=== PATIENT | male | born 1970 | race Caucasian/White ===

== ENCOUNTER 2019-05-17 09:48 | Emergency (ER) | payer MEDICAID, SELFPAY ==
[2019-05-17 09:50] VITALS: BP 120/68; PULSE 104; RESP 16; TEMP 36.6; O2SAT 100; BMI 30.2
[2019-05-17 10:49] VITALS: O2SAT 97
[2019-05-17 10:50] VITALS: BP 134/78; PULSE 93; RESP 18; TEMP 37.3; O2SAT 97
--- NOTE | 2019-05-17 10:55 | RAD_ITS ---
STUDY: X-RAY CHEST REASON FOR EXAM: Male, 48 years old. COUGH WITH BACK PAIN TECHNIQUE: PA and lateral views of the chest. COMPARISON: Comparison is made with prior examination dated September 07, 2009. FINDINGS: The lungs are clear and expanded. There is no demonstrated pleural abnormality. Normal size heart. Normal mediastinum and gus. Normal visualized pulmonary arteries. Normal visualized aortic arch and descending thoracic aorta. Normal visualized thoracic spine. Normal visualized ribs, clavicles, and shoulders. There is no demonstrated abnormality of the visualized soft tissue structures of the upper abdomen. RAD/Chest PA and Lateral IMPRESSION: Normal x-ray examination of the chest. Electronically Signed: Arpit Contreras, at 12:03 EST , Service support ,
[2019-05-17 11:27] VITALS: BP 142/76; PULSE 92; RESP 21; TEMP 37.3; O2SAT 98
[2019-05-17 12:00] VITALS: BP 126/78; PULSE 87; RESP 19; TEMP 37.2; O2SAT 99
--- NOTE | 2019-05-17 13:26 | ED.DCSUM_ITS ---
- ER Visit Summary Date of Service: 05/17/19 Chief Complaint: Cough History of Present Illness: The patient is a 48 M who presents with cough that is been constant for the past 4 days. Patient states he is coughing up some white and yellow sputum. Patient states nothing makes it better or worse. Patient states that his parents have been diagnosed with influenza recently. Patient denies any fevers or chills. Patient does admit to some pain in his right ear. Patient also admits to some pain in his low back. Physical Examination: Vital signs are stable. Patient is afebrile. Patient is in no acute distress. Oral mucosa is pink and moist. Neck is supple. Trachea is midline. There is no JVD noted. Heart was regular rate and rhythm. Lungs are clear and equal bilaterally. Abdomen is soft. Bowel sounds are normal. There is no tenderness. There is no rebound or guarding noted. Skin is warm dry. Cranial nerves II through XII are intact. There are no focal motor or sensory deficits noted. Extremities are intact. There is no calf tenderness or edema. Test Results: PA and lateral chest x-ray was obtained. There is no acute cardiopulmonary process. Influenza swabs were obtained were negative. Emergency Department Course and Treatment: Patient was advised that this is most likely a viral upper respiratory infection. Patient was instructed to drink plenty of fluids. Patient was instructed to follow-up with his primary care physician in 5 to 7 days. Patient understood and was agreeable with the plan. All questions were answered. Disposition: Discharge home Impression: Viral upper respiratory infection This note was generated with [employer] dictation software. It may contain incorrect words, spelling, and punctuation that were not noted in review of the chart prior to signing ED Disposition - Plan for ED Patient: Disposition: Home or Assisted Living Diagnosis: Viral upper respiratory infection Instructions: URI, Viral, No Abx (Adult) Referrals: Syed Wilde [Primary Care Provider] - 5-7 Days
[2019-05-17 13:44] VITALS: BP 124/63; PULSE 71; RESP 15; O2SAT 99
== END 2019-05-17 13:45 | disposition home or self-care (01) ==
PROVIDERS: Emergency Provider Emergency Medicine; PCP Family Medicine
DX: J06.9 Acute upper respiratory infection, unspecified (principal); Z72.0 Tobacco use
CPT/HCPCS: 71046; 87804; 99282

== ENCOUNTER 2020-04-12 22:53 | Emergency (ER) | payer OTHER, MEDICAID, SELFPAY ==
[2020-04-12 22:53] VITALS: BP 128/84; PULSE 69; RESP 12; TEMP 37.1; O2SAT 98; BMI 30.2
--- NOTE | 2020-04-12 23:30 | RAD_ITS ---
STUDY: X-RAY CHEST REASON FOR EXAM: Male, 49 years old. PT ARRIVES TO ED WITH COUGH, FEVER, AND MUSCLE ACHES FOR A COUPLE DAYS TECHNIQUE: Single AP portable view of the chest. COMPARISON: None. FINDINGS: There is no focal parenchymal abnormality. There is no demonstrated pleural abnormality. Normal size heart. Normal mediastinum and gus. Normal visualized pulmonary arteries. Normal visualized aortic arch and descending thoracic aorta. Normal visualized thoracic spine. Normal visualized ribs, clavicles, and shoulders. There is no demonstrated abnormality of the visualized soft tissue structures of the upper abdomen. RAD/Chest 1 View (Portable) IMPRESSION: No pulmonary edema, congestive heart failure or confluent pneumonia. Electronically Signed: Amanda Castro MD at 0:12 EST , Service support ,
[2020-04-12] MEDS: Acetaminophen 500 MG Tablet 1000 MG PO (23:38)
--- NOTE | 2020-04-12 23:39 | ED.VIS.GEN ---
History of Present Illness Chief Complaint: Cough Informant: Patient Onset: Days Context: Gradual Onset Timing: Continuous Current Severity: Moderate Maximum Severity: Moderate Narrative: Patient is a 49-year-old male with history of HIV, smoking, who presents to the emergency department with cough and myalgias. The patient states he has been sick for about 3 days. He has had 2 nieces that had similar symptoms. He is unsure if they test positive for Covid. He states that he is had some muscle aches and a mild cough. He is unsure if he had fever. He has been compliant with all of his antiretroviral therapy. He states that because of his symptoms, work made him come be evaluated for Covid. Prior similar symptoms: No Recent Illness/Hospitalization: No Past Medical History - Allergies and Home Meds Allergies/Adverse Reactions: Allergies No Known Allergies Allergy (Verified 04/12/20 22:54) Primary Care Physician: Syed Wilde DO [Primary Care Provider] - Prior records reviewed: Yes Past Medical History: - - HIV Surgical History: noncontributory Smoking Status: Current every day smoker Review of Systems General: Reports: Chills. Denies: Fever, Sweats Eyes: Denies: Visual changes - bilaterally, Diplopia ENT: Denies: Rhinorrhea, Sore throat Cardiovascular: Denies: Chest pain, Palpitations Respiratory: Reports: Cough. Denies: Dyspnea, Dyspnea on exertion Gastrointestinal: Denies: Abdominal pain, Nausea, Vomiting, Diarrhea, Melena, Hematochezia Genitourinary: Denies: Dysuria, Hematuria, Frequency Musculoskeletal: Reports: Myalgias, Arthralgias. Denies: Back pain, Extremity Pain Skin: Denies: Rash, Wounds Neurological: Denies: Headache, Weakness, Numbness Physical Exam Vital Signs/Narrative: Vital Signs Temp Pulse Resp BP Pulse Ox 04/12/20 22:53 98.7 F 69 12 128/84 H 98 Inital Vital Signs reviewed: Yes General: Well nourished, Well developed, No Acute Distress Head: Normocephalic, Atraumatic Eyes: Perrl, EOMI ENT: Moist mucous membranes, No rhinorrhea Neck: Supple, Nontender Cardiovascular: Regular rate, Regular rhythm, No murmurs Respiratory: No distress, CTA bilaterally, Chest nontender Abdomen: Soft, Nontender, Nondistended, Normal bowel sounds Back: Nontender, Normal Inspection Extremities: Nontender, No edema Skin: Normal color, No rash Neurological: Alert, Oriented x3, Cranial nerves II-XII grossly intact, Normal Strength, Normal Sensation Psychological: Normal affect, Normal Mood Diagnostic/Tx/Re-eval Chest X-Ray - ED: 1 View, Read by ED Physician, Normal, Heart, Lungs, Mediastinum, Bony Structures - Medical Decision Making Patient presents with myalgias and chills. His lungs are clear. His abdomen is soft and nontender. I did obtain Covid testing as he had symptoms for the past 3 days. This was negative. His chest x-ray reviewed by both myself and the radiologist shows no focal infiltrative process, pneumothorax, or other dangerous findings. At this point, I do feel the patient symptoms are likely viral. He has had positive exposures. However, his Covid is negative. He will be discharged home. Impression 1. Viral illness ED Disposition - Plan for ED Patient: Instructions: ED Viral Syndrome (Adult) Referrals: Syed Wilde DO [Primary Care Provider] -
== END 2020-04-13 00:36 | disposition home or self-care (01) ==
LOC: ED 04-13 00:17
PROVIDERS: Emergency Provider Emergency Medicine; PCP Family Medicine
DX: B34.9 Viral infection, unspecified (principal); Z21 Asymptomatic human immunodeficiency virus [HIV] infection status
CPT/HCPCS: 71045; 87426; 99283

== ENCOUNTER 2020-11-20 22:51 | Emergency (ER) | payer MEDICAID, SELFPAY ==
[2020-11-20 22:52] VITALS: BP 99/69; PULSE 100; RESP 18; TEMP 37.2; O2SAT 98; BMI 27.2
--- NOTE | 2020-11-21 00:22 | RAD_ITS ---
STUDY: X-RAY CHEST REASON FOR EXAM: Male, 50 years old. cough TECHNIQUE: Single AP portable view of the chest. COMPARISON: 04/12/2020 FINDINGS: As compared to the most recent prior exam, increased interstitial prominence in the lung bases suggesting early infection such as COVID. There is no demonstrated pleural abnormality. Normal size heart. Normal mediastinum and gus. Normal visualized pulmonary arteries. Normal visualized aortic arch and descending thoracic aorta. Normal visualized thoracic spine. Normal visualized ribs, clavicles, and shoulders. There is no demonstrated abnormality of the visualized soft tissue structures of the upper abdomen. RAD/Chest 1 View (Portable) IMPRESSION: Likely early infection the lower lobes such as COVID Electronically Signed: Ken Goodwin DO at 1:19 EDT Tel , Service support ,
[2020-11-21 00:39] VITALS: BP 93/60; PULSE 88; RESP 18; RESP 20; TEMP 37.2; O2SAT 100
[2020-11-21 01:08] LABS: Mucous, Urine 0 SEEN /hpf (<or=2+); Squamous Epithelial Cells - UA 0 SEEN /hpf (0-5)
[2020-11-21 01:18] LABS: Absolute Lymphocyte Count 1.18 X10^3/uL (0.83-4.51); Absolute Neutrophil Count 3.7 X10^3/uL (2.0-7.7); Basophil# 0.01 X10^3/uL; Basophil% 0.2 % (0-1); Eosinophil# 0.01 X10^3/uL; Eosinophils% 0.2 % (0-5); Hematocrit 45.3 % (40-54); Hemoglobin 15.5 g/dL (13.0-16.5); Lymphocyte # 1.18 X10^3/ul (0.83-4.51); Lymphocyte % 22.1 % (19-41); Mean Corp Hgb Conc 34.2 g/dL (32-36); Mean Corpuscular Hgb 32.3 pg (27.0-32.0); Mean Corpuscular Volume 94.4 fL (80-94); Mean Platelet Vol. 10.8 fl (6.2-12.0); Monocyte# 0.45 X10^3/uL; Monocyte% 8.4 % (0-10); NRBC Flagged by Analyzer 0 % (0-5); Neutrophil # 3.66 X10^3/uL (2.7-7.7); Neutrophil % 68.7 % (47-70); Platelet Count 114 K/mm3 (150-450); RBC Distribution Width CV 12.4 % (11.6-14.6); RBC Distribution Width SD 43.3 fl (35.1-43.9); White Blood Count 5.3 K/mm3 (4.4-11.0)
[2020-11-21 01:26] LABS: Color, Urine Yellow (Yellow); Glucose, Dipstick Normal (Normal); Ketone-Dipstick 5 mg/dl (Negative); Leukocyte Esterase-Dipstick 25 /ul (Negative); Nitrite-Dipstick Negative (Negative); Occult Blood-Urine 50 /ul (Negative); Protein-Dipstick 15 mg/dl (Negative); Specific Gravity, Urine 1.015 (1.002-1.030); Urine Bilirubin Dipstick Negative (Negative); Urine Clarity Clear (Clear); Urine Urobilinogen 1 mg/dl (Normal)
[2020-11-21 01:34] LABS: Anion Gap 3 (5-15); BUN 14 mg/dL (7-18); BUN/Creat Ratio 14.1 RATIO (10-20); Calcium,Total 8.4 mg/dL (8.5-10.1); Chloride 104 mmol/L (98-107); EST Glomerular Filtration Rate 84 mL/min (>60); Est Glom Filt Rate - Afr Amer 102 mL/min (>60); Estimated Creatinine Clearance 88.38 ml/min; Glucose 99 mg/dL (74-106); Potassium 3.9 mmol/L (3.5-5.1); Sodium Level 135 mmol/L (136-145)
[2020-11-21 01:49] LABS: Bacteria RARE /hpf (None Seen); Red Blood Cells-Urine 0-5 SEEN /hpf (0-5); White Blood Cells 0-5 SEEN /hpf (0-5)
--- NOTE | 2020-11-21 02:15 | EDS_ITS ---
HPI History of Present Illness Chief Complaint: General Illness Informant: patient Onset/Context/Timing Onset: Days (3 days) Context: Gradual Onset Current Severity: Mild Maximum Severity: Moderate Narrative Narrative: Patient present secondary to fever, cough, generalized fatigue and body aches. Patient states symptoms started 2 to 3 days ago. T-max at home has been 101. He reports dry cough. He has minimal shortness of breath. No vomiting or diarrhea. No urinary symptoms. [facility] Medical History High cholesterol HIV (human immunodeficiency virus infection) Hypertension Home Medications lisinopril 20 mg PO DAILY 10/01/13 [History Last Taken Unknown] atorvastatin 80 mg PO DAILY 05/17/19 [History Last Taken Unknown] piitargcj-chdm-fgyqc-tenof ala 1 tab PO DAILY 05/17/19 [History Last Taken Unknown] prednisone 40 mg PO DAILY #8 tab 11/21/20 [Rx Last Taken Unknown] Allergy/AdvReac Type Severity Reaction Status Date / Time No Known Allergies Allergy Verified 11/20/20 22:51 Social History Smoking Status: Current every day smoker tobacco type: cigarettes ROS ROS ED Constitutional Constitutional ED: Reports fever(s) Eyes Eyes: Denies change in vision ENT ENT ED: Denies rhinorrhea or sore throat Cardiovascular Cardiovascular: Denies chest pain or palpitations Respiratory/Chest Respiratory/Chest: Reports cough and dyspnea; Denies sputum Gastrointestinal Gastrointestinal: Denies abdominal pain, diarrhea, nausea or vomiting Genitourinary Genitourinary ED: Denies dysuria Musculoskeletal Musculoskeletal: Reports myalgias Integumentary Denies rash Neurologic Neurologic: Denies paresthesias or weakness Allergic/Immunologic Allergic/Immunologic ED: Denies urticaria EXAM Physical Exam Const Vital Signs: 11/20/20 22:52 11/21/20 00:39 Temperature 98.9 F 98.9 F Temperature Source Temporal Temporal Pulse Rate 100 88 Respiratory Rate 18 18 Respiratory Effort Normal Respiratory Pattern Normal Blood Pressure 99/69 93/60 Blood Pressure Mean 79 71 Pulse Ox 98 100 Oxygen Delivery Method Room Air Room Air Positive well nourished and well developed General Appearance ED: well developed Eyes PERRL and EOMs intact bilaterally Neck supple Chest Wall inspection of chest normal and palpation of chest normal Resp normal respiratory effort and clear to auscultation bilaterally Cardio regular rate and regular rhythm GI normal to inspection, nondistended, normoactive bowel sounds and non-tender Palpation: soft Extremity normal to inspection Neuro oriented x3 Sensorium / Orientation: alert Psych mental status grossly normal Skin no rashes or lesions noted MDM MDM MDM Narrative Medical decision making narrative: Lab work, chest x-ray, Covid swab obtained. Lab Data Attestation: I reviewed the patient's lab results. Labs: Laboratory Results - last 24 hr 11/21/20 11/21/20 11/21/20 00:25 00:25 00:47 WBC 5.3 RBC 4.80 Hgb 15.5 Hct 45.3 MCV 94.4 H MCH 32.3 H MCHC 34.2 RDW Std Deviation 43.3 RDW Coeff of Vanita 12.4 Plt Count 114 L MPV 10.8 Immature Gran % (Auto) 0.400 Neut % (Auto) 68.7 Lymph % (Auto) 22.1 Glascock % (Auto) 8.4 Eos % (Auto) 0.2 Baso % (Auto) 0.2 Absolute Neuts (auto) 3.7 Absolute Lymphs (auto) 1.18 Nucleated RBC % 0 Sodium 135 L Potassium 3.9 Chloride 104 Carbon Dioxide 28.0 Anion Gap 3 L BUN 14 Creatinine 1.00 Estim Creat Clear Calc 88.38 Est GFR (MDRD) Af Amer 102 Est GFR (MDRD) Non-Af 84 BUN/Creatinine Ratio 14.1 Glucose 99 Calcium 8.4 L Urine Color Yellow Urine Clarity Clear Urine pH 6.0 Ur Specific [place] 1.015 Urine Protein 15 H Urine Glucose (UA) Normal Urine Ketones 5 H Urine Occult Blood 50 H Urine Nitrite Negative Urine Bilirubin Negative Urine Urobilinogen 1 H Ur Leukocyte Esterase 25 H Urine RBC 0-5 SEEN Urine WBC 0-5 SEEN Ur Squamous Epith Cells 0 SEEN Urine Bacteria RARE Urine Mucus 0 SEEN Rapid Covid swab negative. Radiography Chest X-Ray - ED: 1 View, Read by ED Physician and No Infiltrates Diagnostic Testing: Radiology Impression Chest X-Ray 11/21/20 00:22 IMPRESSION: Likely early infection the lower lobes such as COVID Electronically Signed: Ken Goodwin DO at 1:19 EDT Tel , Service support , Treatment and Re-Evaluation Comments:: Chest x-ray per my interpretation reveals no infiltrate. Lab work is unremarkable. Urinalysis shows no sign of infection. Although rapid Covid swab is negative radiologist feels the chest x-ray shows possible early infection in the lower lobes consistent with Covid. Covid PCR test is sent along with viral respiratory panel. Patient be treated with a short course of steroids to help with lung inflammation. He was advised to follow-up with his infectious disease specialist. Return instructions are provided. Discharge Plan Triage Chief Complaint: General Illness ED Provider: Yvonne Wood Dx/Rx/DC Orders Clinical Impression: Viral URI with cough, Viral syndrome Instructions: ED Viral Syndrome (Adult) Prescriptions: New prednisone 20 mg tablet 40 mg PO DAILY Qty: 8 RF: 0 No Action lisinopril 10 MG tablet 20 mg PO DAILY RF: 0 atorvastatin 80 MG tablet 80 mg PO DAILY RF: 0 spkhufztd-icor-hxddb-tenof ala [id number] mg tablet 1 tab PO DAILY RF: 0 Primary Care Provider: Syed Wilde Referrals: Syed Wilde DO [Primary Care Provider] - 5-7 Days Disposition Disposition: Home, Self Care
[2020-11-21 02:24] VITALS: BP 100/75; PULSE 80; O2SAT 100
[2020-11-21] MEDS: predniSONE 20 MG Tablet 40 MG PO (02:24)
--- NOTE | 2020-11-21 05:53 | ED.RN ---
Attempted to notify patient of his negative COVID and Respiratory panel but phone number states phone has restrictions and cannot be completed.
== END 2020-11-21 02:30 | disposition home or self-care (01) ==
PROVIDERS: Emergency Provider Emergency Medicine; PCP Family Medicine
DX: J06.9 Acute upper respiratory infection, unspecified (principal); F17.210 Nicotine dependence, cigarettes, uncomplicated; E78.00 Pure hypercholesterolemia, unspecified; I10 Essential (primary) hypertension; Z21 Asymptomatic human immunodeficiency virus [HIV] infection status; Z79.899 Other long term (current) drug therapy
CPT/HCPCS: 71045; 80048; 81001; 85025; 87040; 87426; 87633; 87635; 99284; U0005; U0003

== ENCOUNTER 2020-12-29 12:19 | Emergency (ER) | payer MEDICAID, SELFPAY ==
[2020-12-29 12:20] VITALS: BP 112/83; PULSE 102; RESP 19; TEMP 36.4; O2SAT 100; BMI 27.4
--- NOTE | 2020-12-29 12:21 | RAD_ITS ---
STUDY: X-RAY CHEST REASON FOR EXAM: Male, 50 years old. COUGH TECHNIQUE: Frontal portable view of the chest COMPARISON: 21 November 2020 FINDINGS: There are multifocal irregular nodular low density opacities. There is no pneumothorax, pulmonary edema or cardiac megaly. RAD/Chest 1 View (Portable) IMPRESSION: Bilateral multifocal pneumonia, probably Covid. Electronically Signed: Chanda Quintero MD at 14:21 EDT Tel , Service support ,
--- NOTE | 2020-12-29 13:06 | EKG12_ITS ---
Test Reason : SOB Blood Pressure : / mmHG Vent. Rate : 099 BPM Atrial Rate : 099 BPM P-R Int : 162 ms QRS Dur : 112 ms QT Int : 412 ms P-R-T Axes : 058 -29 078 degrees QTc Int : 528 ms Normal sinus rhythm Prolonged QT Abnormal ECG Confirmed by LUCIO GIL, TAMAR ([id number]), editorial project manager HAYDEE FORMAN ([id number]) on 01/01/2021 8:50:32 AM Referred By: LANDY Confirmed By:TAMAR VALDES MD
--- NOTE | 2020-12-29 13:07 | EDS_ITS ---
HPI History of Present Illness Chief Complaint: Cold Sx Narrative Narrative: Patient with past medical history of HIV, hypertension, hypercholesterolemia, positive smoker, presents with over 8 days of chest tightness, occasionally productive cough, and chest burning. He states that a week ago last Thursday he began feeling chest tightness. He states his mother is sick with RSV. It got progressively worse a few days ago. He now has dyspnea on exertion. He states he had a subjective fever, and burning sensation in his chest. He also felt chilled. He denies any myalgias or arthralgias. No nausea or vomiting, but states he has become increasingly more short of breath and mildly fatigued. No leg swelling. No other symptoms. [facility] Medical History High cholesterol HIV (human immunodeficiency virus infection) Hypertension Home Medications lisinopril 20 mg PO DAILY 10/01/13 [History Last Taken Unknown] atorvastatin 80 mg PO DAILY 05/17/19 [History Last Taken Unknown] rgdqwwvxw-sugs-mrqlm-tenof ala 1 tab PO DAILY 05/17/19 [History Last Taken Unknown] prednisone 40 mg PO DAILY #8 tab 11/21/20 [Rx Last Taken Unknown] albuterol sulfate [Ventolin HFA] 1 - 2 puff INHALATION Q4H PRN PRN #1 ea 12/29/20 [Rx Last Taken Unknown] prednisone 40 mg PO DAILY #10 tab 12/29/20 [Rx Last Taken Unknown] Allergy/AdvReac Type Severity Reaction Status Date / Time No Known Allergies Allergy Verified 12/29/20 12:21 Social History Smoking Status: Current every day smoker tobacco type: cigarettes ROS ROS ED ROS Narrative Constitutional: Subjective fever, positive chills. HEENT: No sore throat. No neck pain. No loss of vision. No rhinorrhea. Cardiovascular: No chest pain. No palpitations. No pedal edema. Respiratory: Positive occasionally productive cough, positive shortness of breath. Positive chest tightness. Abdominal: No abdominal pain. No nausea. No vomiting. Genitourinary: No dysuria. No hematuria. Musculoskeletal: No myalgias. No arthralgias. Neurologic: No headaches. No dizziness. No lightheadedness. Skin: No rash. No change in color. Psychiatric: No depression. No anxiety. EXAM Physical Exam Narrative Exam Narrative: Afebrile. Vital signs noted. HEENT: Normocephalic. Atraumatic. PERRL, EOMI. Neck soft and supple. No point tenderness or step off. Cardiovascular: Regular rate and rhythm. No murmurs, rubs, or gallops appreciated. Respiratory: No tachypnea. Lungs clear to auscultation bilaterally. Gastrointestinal: Abdomen soft, nontender, with normoactive bowel sounds. No rebound or guarding. Neurological: Awake. Alert. Nonfocal, nonlateralizing. Skin: No rash. Normal color. No pallor. Musculoskeletal: No pedal edema. Full range of motion extremities. Const Vital Signs: 12/29/20 12:20 12/29/20 12:49 12/29/20 13:23 Temperature 97.5 F L Temperature Source Temporal Pulse Rate 102 H Respiratory Rate 19 H Respiratory Effort Normal Non-Labored Respiratory Pattern Normal Blood Pressure 112/83 H Blood Pressure Mean 92 Pulse Ox 100 96 Oxygen Delivery Method Room Air Room Air 12/29/20 14:05 Temperature 98 F Temperature Source Temporal Pulse Rate 90 Respiratory Rate 19 H Respiratory Effort Respiratory Pattern Blood Pressure 110/81 H Blood Pressure Mean 90 Pulse Ox 95 Oxygen Delivery Method Room Air MDM MDM MDM Narrative Medical decision making narrative: Comprehensive work-up was pursued. Smoking cessation was discussed. In regards to his HIV status, he states that his viral load is undetectable. I do feel further work-up is indicated given his continued smoking, hypertension, and hypercholesterolemia history. CBC shows white count 8.1, hemoglobin 13.2 with hematocrit 39.7. CMP grossly normal. Troponin negative at 43. EKG demonstrates normal sinus rhythm at 99 bpm without ectopy or acute ST changes. His chest x-ray shows multifocal nodular pneumonia consistent with COVID-19. However, his rapid Covid swab is negative along with his influenza swab. Covid PCR will be obtained in the event that he would require oxygen. He was ambulated in his room and his pulse ox remained 94 to 96% on room air. He will be given prescriptions for an albuterol inhaler and for steroid burst for the next few days. He will be treated as COVID-19. Return instructions to the emergency department were reviewed. Disposition is discharged home in stable condition. Lab Data Attestation: I reviewed the patient's lab results. Labs: Laboratory Results - last 24 hr 12/29/20 12/29/20 13:25 13:25 WBC 8.1 RBC 4.19 L Hgb 13.2 Hct 39.7 L MCV 94.7 H MCH 31.5 MCHC 33.2 RDW Std Deviation 44.9 H RDW Coeff of Vanita 13.0 Plt Count 196 MPV 9.7 Immature Gran % (Auto) 0.400 Neut % (Auto) 90.1 H Lymph % (Auto) 5.9 L Bartholomew % (Auto) 3.2 Eos % (Auto) 0.2 Baso % (Auto) 0.2 Absolute Neuts (auto) 7.3 Absolute Lymphs (auto) 0.48 L Nucleated RBC % 0 Sodium 139 Potassium 4.1 Chloride 109 H Carbon Dioxide 24.0 Anion Gap 6 BUN 13 Creatinine 0.94 Estim Creat Clear Calc 94.02 Est GFR (MDRD) Af Amer 109 Est GFR (MDRD) Non-Af 90 BUN/Creatinine Ratio 13.9 Glucose 150 H Calcium 9.1 Troponin I High Sens 43 Radiography Diagnostic Testing: Clinical Impression(s) from Imaging Studies Chest X-Ray 12/29/20 12:21 IMPRESSION: Bilateral multifocal pneumonia, probably Covid. Electronically Signed: Chanda Quintero MD at 14:21 EDT Tel , Service support , Discharge Plan Triage Chief Complaint: Cold Sx ED Provider: Elías Bergman Dx/Rx/DC Orders Clinical Impression: COVID-19, Viral URI with cough Instructions: Coronavirus Disease 2019 (COVID-19): Caring for Yourself or Others Prescriptions: New prednisone 20 mg tablet 40 mg PO DAILY Qty: 10 RF: 0 albuterol sulfate [Ventolin HFA] 90 mcg/actuation HFA aerosol inhaler 1 - 2 puff inhalation Q4H PRN PRN (Reason: Wheezing) Qty: 1 RF: 0 No Action lisinopril 10 MG tablet 20 mg PO DAILY RF: 0 atorvastatin 80 MG tablet 80 mg PO DAILY RF: 0 bcmzhwdjx-azef-fdqga-tenof ala [id number] mg tablet 1 tab PO DAILY RF: 0 prednisone 20 mg tablet 40 mg PO DAILY Qty: 8 RF: 0 Primary Care Provider: Syed Wilde Referrals: Syed Wilde DO [Primary Care Provider] - 01/02/21 Disposition Disposition: Home, Self Care
[2020-12-29 13:23] VITALS: O2SAT 96
[2020-12-29 13:38] LABS: Absolute Lymphocyte Count 0.48 X10^3/uL (0.83-4.51); Absolute Neutrophil Count 7.3 X10^3/uL (2.0-7.7); Basophil# 0.02 X10^3/uL; Basophil% 0.2 % (0-1); Eosinophil# 0.02 X10^3/uL; Eosinophils% 0.2 % (0-5); Hematocrit 39.7 % (40-54); Hemoglobin 13.2 g/dL (13.0-16.5); Lymphocyte # 0.48 X10^3/ul (0.83-4.51); Lymphocyte % 5.9 % (19-41); Mean Corp Hgb Conc 33.2 g/dL (32-36); Mean Corpuscular Hgb 31.5 pg (27.0-32.0); Mean Corpuscular Volume 94.7 fL (80-94); Mean Platelet Vol. 9.7 fl (6.2-12.0); Monocyte# 0.26 X10^3/uL; Monocyte% 3.2 % (0-10); NRBC Flagged by Analyzer 0 % (0-5); Neutrophil # 7.28 X10^3/uL (2.7-7.7); Neutrophil % 90.1 % (47-70); POSITIVE DIFFERENTIAL YES; Platelet Count 196 K/mm3 (150-450); RBC Distribution Width SD 44.9 fl (35.1-43.9); Red Blood Count 4.19 M/mm3 (4.6-6.2); White Blood Count 8.1 K/mm3 (4.4-11.0)
[2020-12-29 13:39] LABS: Differential Indicated SCAN CRITERIA MET
[2020-12-29 13:54] LABS: Anion Gap 6 (5-15); BUN 13 mg/dL (7-18); BUN/Creat Ratio 13.9 RATIO (10-20); Calcium,Total 9.1 mg/dL (8.5-10.1); Chloride 109 mmol/L (98-107); Creatinine, Serum 0.94 mg/dL (0.70-1.30); EST Glomerular Filtration Rate 90 mL/min (>60); Est Glom Filt Rate - Afr Amer 109 mL/min (>60); Estimated Creatinine Clearance 94.02 ml/min; Glucose 150 mg/dL (74-106); Potassium 4.1 mmol/L (3.5-5.1); Sodium Level 139 mmol/L (136-145); Troponin-I HS 43 pg/mL (3.0-78.0)
[2020-12-29 14:05] VITALS: BP 110/81; PULSE 90; RESP 19; TEMP 36.6; O2SAT 95
[2020-12-29 15:34] VITALS: O2SAT 96
[2020-12-29 16:47] VITALS: BP 116/89; PULSE 102; RESP 36; TEMP 36.6; O2SAT 98
== END 2020-12-29 16:48 | disposition home or self-care (01) ==
PROVIDERS: Emergency Provider Emergency Medicine; PCP Family Medicine
DX: U07.1 COVID-19 (principal); J06.9 Acute upper respiratory infection, unspecified; F17.210 Nicotine dependence, cigarettes, uncomplicated; E78.00 Pure hypercholesterolemia, unspecified; I10 Essential (primary) hypertension; Z79.52 Long term (current) use of systemic steroids; Z79.899 Other long term (current) drug therapy; Z21 Asymptomatic human immunodeficiency virus [HIV] infection status
CPT/HCPCS: 71045; 80048; 84484; 85025; 87426; 87635; 87804; 93005; 94760; 99284; U0005; A4216; U0003

== ENCOUNTER → 2021-05-07 16:56 | Outpatient (CLI) | payer MEDICAID, SELFPAY ==
[2021-05-07 18:29] LABS: ALB/GLOB Ratio 0.8 RATIO (0.9-2.4); AST(SGOT) 22 U/L (15-37); Alanine Aminotransfer ALT/SGPT 17 U/L (16-61); Albumin, Serum 3.5 g/dL (3.2-5.0); Alkaline Phosphatase 106 U/L (45-117); Anion Gap 4 (5-15); BUN 20 mg/dL (7-18); BUN/Creat Ratio 17.4 RATIO (10-20); Calcium,Total 9.3 mg/dL (8.5-10.1); Chloride 102 mmol/L (98-107); Creatinine, Serum 1.15 mg/dL (0.70-1.30); EST Glomerular Filtration Rate 71 mL/min (>60); Est Glom Filt Rate - Afr Amer 86 mL/min (>60); Globulin 4.2 g/dL (2.2-4.2); Glucose 108 mg/dL (74-106); Potassium 3.7 mmol/L (3.5-5.1); Protein, Total 7.7 g/dL (6.4-8.2); Sodium Level 135 mmol/L (136-145)
[2021-05-08 10:25] LABS: Magnesium 2.1 mg/dL (1.6-2.6)
== END ==
PROVIDERS: PCP Family Medicine
DX: I50.22 Chronic systolic (congestive) heart failure (principal)
CPT/HCPCS: 80053; 83735

== ENCOUNTER → 2021-05-25 14:08 | Outpatient (CLI) | payer MEDICAID, SELFPAY ==
[2021-05-25 14:47] LABS: Anion Gap 6 (5-15); BUN 17 mg/dL (7-18); BUN/Creat Ratio 16.5 RATIO (10-20); Calcium,Total 9.6 mg/dL (8.5-10.1); Chloride 105 mmol/L (98-107); Creatinine, Serum 1.03 mg/dL (0.70-1.30); EST Glomerular Filtration Rate 81 mL/min (>60); Est Glom Filt Rate - Afr Amer 98 mL/min (>60); Glucose 104 mg/dL (74-106); Potassium 4.4 mmol/L (3.5-5.1); Sodium Level 138 mmol/L (136-145)
[2021-05-25 14:49] LABS: BNP,B-Type NATRIURETIC PEPTIDE 208.3 pg/mL (0-100)
== END ==
PROVIDERS: PCP Family Medicine
DX: I50.23 Acute on chronic systolic (congestive) heart failure (principal)
CPT/HCPCS: 80048; 83880

== ENCOUNTER → 2021-07-01 16:07 | Outpatient (CLI) | payer MEDICAID, SELFPAY ==
[2021-07-02 07:40] LABS: Prothrombin Time Fingerstick 20.7 SEC (11.7-14.9)
[2021-07-02 07:41] LABS: INR Fingerstick 1.7
== END ==
PROVIDERS: PCP Family Medicine
DX: Z95.2 Presence of prosthetic heart valve (principal)
CPT/HCPCS: 36416; 85610

== ENCOUNTER → 2021-09-12 | Outpatient (CLI) | payer MEDICAID, SELFPAY ==
[2021-09-12 11:47] LABS: Syphilis Antibodies Non-reactive
[2021-09-14 15:34] LABS: HIV-1 RNA by PCR, Quant. < 20 copies/mL (.)
== END | disposition home or self-care (01) ==
PROVIDERS: PCP Family Medicine; Referring Provider Internal Medicine Infectious Disease; Visit Provider Internal Medicine Infectious Disease
DX: B20 Human immunodeficiency virus [HIV] disease (principal)
CPT/HCPCS: 36415; 86780; 87536